=== PATIENT | female | born 1950 | race Caucasian/White ===

== ENCOUNTER → 2016-10-27 11:10 | Emergency (ER) | payer MEDICARE, BC ==
[2016-10-27 11:22] VITALS: BP 149/98
--- NOTE | 2016-10-27 12:40 | RAD ---
HISTORY: Back pain, fall, subacute trauma COMPARISONS: None VIEWS: 5 , Frontal, lateral, coned-down lateral sacral, and bilateral oblique views of the lumbar spine. FINDINGS: ALIGNMENT: There is a levoscoliotic curvature of the spine VERTEBRAL BODIES: There is mild depression of the superior endplate of L1. There is no osseous retropulsion JOINTS: There is diffuse facet hypertrophic change INTERVERTEBRAL DISCS: There is diffuse loss of intervertebral disc height. SOFT TISSUE: Unremarkable. OTHER: The pelvis is unremarkable. The lung bases are clear. IMPRESSION: 1. 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 NO OSSEOUS RETROPULSION. 2. DEGENERATIVE DISC DISEASE AND OSTEOARTHRITIS. 3. SCOLIOSIS
--- NOTE | 2016-10-27 12:40 | RAD ---
Indication: Right hip pain after fall. 2 views of the right hip and an AP view of the pelvis demonstrates no fracture. Pelvic ring is intact. IMPRESSION: No fracture of the right hip is noted.
--- NOTE | 2016-10-27 12:43 | ED ---
Back Pain - HPI Summary HPI Summary: 66F presents with right hip pain and back pain s/p fall four days ago. She states she was reaching for something a shelf and landed on his tailbone. She needed assistance getting up but has been walking since. She took some ibuprofen and it helped with the pain but made her constipated. She states that her pain is greatest when she starts moving but as she moves her pain decreases. she denies any numbness or tingling. She denies any loss of bowel or bladder. She denies any saddle anaesthesia. She denies any pain down her legs. She denies any history of back pain. - History of Current Complaint Chief Complaint: EDExtremityLower Stated Complaint: FALL/4DAYS AGO Time Seen by Provider: 10/27/16 11:23 Pain Intensity: 5 PMH/Surg Hx/FS Hx/Imm Hx Endocrine/Hematology History: Denies: Hx Anticoagulant Therapy Respiratory History: Denies: Hx Asthma Musculoskeletal History: Reports: Hx Scoliosis Infectious Disease History: Denies: Traveled Outside the [place] in Last 30 Days - Family History Known Family History: Positive: Cardiac Disease - Social History Alcohol Use: None Substance Use Type: Reports: None Smoking Status (MU): Light Every Day Tobacco Smoker Review of Systems Negative: Fever Negative: Chest Pain Negative: Shortness Of Breath Positive: Myalgia - back and right hip pain All Other Systems Reviewed And Are Negative: Yes Physical Exam Triage Information Reviewed: Yes Vital Signs On Initial Exam: Initial Vitals Temp Pulse Resp BP Pulse Ox 97.4 F 100 18 149/98 100 10/27/16 11:19 10/27/16 11:19 10/27/16 11:19 10/27/16 11:19 10/27/16 11:19 Vital Signs Reviewed: Yes Appearance: Positive: Well-Appearing Skin: Positive: Warm, Dry Head/Face: Positive: Normal Head/Face Inspection Eyes: Positive: Normal, Conjunctiva Clear Respiratory/Lung Sounds: Positive: Clear to Auscultation, Breath Sounds Present Cardiovascular: Positive: Normal, RRR Musculoskeletal: Positive: Strength/ROM Intact - back, hip, Other - no tender, neg SLR, good pulses - [place] Coma Scale Coma Scale Total: 15 Diagnostics - Vital Signs Vital Signs Temp Pulse Resp BP Pulse Ox 10/27/16 11:41 97.4 F 100 20 149/98 100 10/27/16 11:19 97.4 F 100 18 149/98 100 - Laboratory Lab Statement: Any lab studies that have been ordered have been reviewed, and results considered in the medical decision making process. - Radiology hip Xray Interpretation: No Acute Changes Radiology Interpretation Completed By: Radiologist back Xray Interpretation: Positive (See Comments) - MPRESSION: 1. 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 NO OSSEOUS RETROPULSION. 2. DEGENERATIVE DISC DISEASE AND OSTEOARTHRITIS. 3. SCOLIOSIS Radiology Interpretation Completed By: Radiologist Back Pain Course/Dx - Course Course Of Treatment: 66F presents with right hip pain and back pain s/p fall four days ago. She states she was reaching for something a shelf and landed on his tailbone. She needed assistance getting up but has been walking since. She took some ibuprofen and it helped with the pain but made her constipated. She states that her pain is greatest when she starts moving but as she moves her pain decreases. she denies any numbness or tingling. She denies any loss of bowel or bladder. She denies any saddle anaesthesia. She denies any pain down her legs. She denies any history of back pain. on exam nontender. xray hip normal. back L1 reduction height. no pain in the area. told to continue tyenlol and follow up with primary. patient understands and agrees with plan. - Diagnoses Differential Diagnosis/HQI/PQRI: Positive: Fracture, Strain, Sprain Provider Diagnoses: Hip pain, Back pain Discharge - Discharge Plan Condition: Good Disposition: HOME Patient Education Materials: Back Pain (ED) Referrals: Non Staff,Doctor [Primary Care Provider] - Additional Instructions: Use ibuprofen or Tylenol for pain every 6 hours heat area, move as much as possible Follow up with primary within 5 days Return to ED if unable to ambulate or develop any new or worsening symptoms
== END | disposition home or self-care (01) ==
LOC: ED 11:10
DX: M25.551 Pain in right hip (principal); M54.9 Dorsalgia, unspecified; F17.210 Nicotine dependence, cigarettes, uncomplicated; M51.37 Other intervertebral disc degeneration, lumbosacral region; M41.9 Scoliosis, unspecified
CPT/HCPCS: 72110; 99282

== ENCOUNTER 2016-11-02 00:18 | Inpatient (IN) | payer MEDICARE, BC ==
[2016-11-02] MEDS ORDERED: Nitroglycerin TAB 0.4 MG* 0.4 MG TAB SL ONE (00:26)
[2016-11-02] MEDS ORDERED: NS 0.9% 1000 ML* 1,000 ML IV ONE ×2 (00:26→02:00)
[2016-11-02] MEDS ORDERED: Heparin for STEMI(*) 5,000 UNITS/ML 1 ML VIAL IV ONE (00:26)
[2016-11-02] MEDS ORDERED: Ticagrelor* 90 MG TAB PO ONE (00:37)
[2016-11-02] MEDS ORDERED: fentaNYL* 50 MCG/ML 2 ML VIAL (100 MCG VIAL) ONE (00:38)
[2016-11-02] MEDS ORDERED: nitroGLYCERIN DRIP* 250 ML ONE ×2 (00:38→07:18)
[2016-11-02] MEDS ORDERED: Heparin 2 UNITS/ML IVPREMIX* 3,000 ML IV ONE (00:38)
[2016-11-02] MEDS ORDERED: Lidocaine 1% INJ* 10 MG/ML 30 ML SDV ONE (00:38)
[2016-11-02] MEDS ORDERED: Midazolam* 1 MG/ML 5 ML VIAL (5 MG) ONE (00:38)
[2016-11-02] MEDS ORDERED: Iohexol 350 (CONTRAST) 200 ML MDV IV ONE ×2 (00:39→01:30)
[2016-11-02 00:42] LABS: Hematocrit 43 % (35-47); Hemoglobin 15.1 g/dl (12.0-16.0); Mean Corpuscular HGB Conc 35 g/dl (31-36); Mean Corpuscular Hemoglobin 31 pg (27-31); Mean Corpuscular Volume 88 fL (80-97); Mean Platelet Volume 8 um3 (7.4-10.4); Red Blood Count 4.92 10^6/ul (4.0-5.4); Red Cell Distribution Width 14 % (10.5-15); White Blood Count 10.9 10^3/ul (3.5-10.8)
[2016-11-02 00:54] LABS: Albumin 4.4 g/dL (3.2-5.2); BUN/Creatinine Ratio 18.2 (8-20); Calcium 9.8 mg/dL (8.6-10.3); EGFR African American 82.9 (>60); EGFR Non-African American 64.5 (>60); Globulin 3.7 g/dL (2-4); Potassium 3.2 mmol/L (3.5-5.0); Total Bilirubin 0.3 mg/dL (0.2-1.0); Total Protein 8.1 g/dL (6.4-8.9)
[2016-11-02] MEDS ORDERED: Heparin(*) 1000 UNIT/ML 10 ML VIAL CATH LAB IV ONE (01:10)
[2016-11-02 01:14] LABS: Troponin I 0.1 ng/mL (<0.04)
[2016-11-02] MEDS ORDERED: Atropine SYRINGE* 0.1 MG/ML 10 ML SYRINGE (1 MG) ONE (01:54)
[2016-11-02] MEDS ORDERED: Atorvastatin* 80 MG TAB ONE (02:34)
[2016-11-02] MEDS ORDERED: Atorvastatin* 80 MG TAB PO ONE (02:35)
[2016-11-02] MEDS ORDERED: Metoprolol Succinate XL TAB* 25 MG PO ONE ×2 (02:55→05:00)
[2016-11-02] MEDS ORDERED: Ondansetron INJ* 2 MG/ML VIAL IV PRN (04:13)
[2016-11-02] MEDS ORDERED: Zolpidem TAB* 5 MG PO PRN (04:13)
[2016-11-02] MEDS ORDERED: oxyCODONE/Acetamin 5/325 MG* TAB PO PRN (04:14)
[2016-11-02] MEDS ORDERED: fentaNYL* 50 MCG/ML 2 ML VIAL (100 MCG VIAL) IV PRN (04:14)
--- NOTE | 2016-11-02 04:30 | ED ---
Roderick Galicia Alfonso, scribed for Dago Craven MD on 11/02/16 at 0033 . HPI Chest Pain - HPI Summary HPI Summary: STEMI Alert over headed at 0011. This patient is a 66 year old F BIBA to [facility] with a chief complaint of CP since 2200 tonight. The patient rated the pain 7/10 in severity, but now states the pain is not bad. Symptoms aggravated by nothing and alleviated by ASA 324 mg and NTG x1 RN CHARGE. Patient reports SOB. FHx of CAD. - History of Current Complaint Chief Complaint: EDChestPainROMI Time Seen by Provider: 11/02/16 00:25 Hx Obtained From: Patient Onset/Duration: Started Minutes Ago - 0 tonight, Still Present Timing: Constant Initial Severity: Severe Current Severity: Moderate Pain Intensity: 7 - was. Now the pain is not bad. Pain Scale Used: 0-10 Numeric Aggravating Factor(s): Nothing Alleviating Factor(s): Medication - ASA, NTG 123 - x1 Associated Signs and Symptoms: Positive: Chest Pain, Shortness of Breath PMH/Surg Hx/FS Hx/Imm Hx Endocrine/Hematology History: Denies: Hx Anticoagulant Therapy Respiratory History: Denies: Hx Asthma Musculoskeletal History: Reports: Hx Scoliosis - Family History Known Family History: Positive: Cardiac Disease - Social History Alcohol Use: None Substance Use Type: Reports: None Smoking Status (MU): Light Every Day Tobacco Smoker Review of Systems Positive: Chest Pain Positive: Shortness Of Breath All Other Systems Reviewed And Are Negative: Yes Physical Exam Triage Information Reviewed: Yes Vital Signs On Initial Exam: Initial Vitals Temp Pulse Resp BP Pulse Ox 97.8 F 84 16 170/95 100 11/02/16 00:36 11/02/16 00:36 11/02/16 00:36 11/02/16 00:36 11/02/16 00:36 Vital Signs Reviewed: Yes Appearance: Positive: Well-Appearing, Pain Distress - Moderate Skin: Positive: Warm, Skin Color Reflects Adequate Perfusion, Dry Head/Face: Positive: Normal Head/Face Inspection Eyes: Positive: EOMI, CL ENT: Positive: Normal ENT inspection Neck: Positive: Supple, Nontender Respiratory/Lung Sounds: Positive: Clear to Auscultation, Breath Sounds Present Cardiovascular: Positive: RRR Abdomen Description: Positive: Nontender, Soft Bowel Sounds: Positive: Present Musculoskeletal: Positive: Normal, Strength/ROM Intact Neurological: Positive: Normal, Sensory/Motor Intact, Alert, Oriented to Person Place, Time Psychiatric: Positive: Affect/Mood Appropriate Diagnostics - Vital Signs Vital Signs Temp Pulse Resp BP Pulse Ox 11/02/16 00:45 84 18 150/96 100 11/02/16 00:36 97.8 F 84 20 170/95 100 - Laboratory Lab Results: Lab Results 11/02/16 11/02/16 11/02/16 Range/Units 00:25 00:25 00:25 WBC 10.9 H (3.5-10.8) 10^3/ul RBC 4.92 (4.0-5.4) 10^6/ul Hgb 15.1 (12.0-16.0) g/dl Hct 43 (35-47) % MCV 88 (80-97) fL MCH 31 (27-31) pg MCHC 35 (31-36) g/dl RDW 14 (10.5-15) % Plt Count 444 (150-450) 10^3/ul MPV 8 (7.4-10.4) um3 Neut % (Auto) 66.1 (38-83) % Lymph % (Auto) 26.8 (25-47) % Bledsoe % (Auto) 5.0 (1-9) % Eos % (Auto) 1.4 (0-6) % Baso % (Auto) 0.7 (0-2) % Absolute Neuts (auto) 7.2 (1.5-7.7) 10^3/ul Absolute Lymphs (auto) 2.9 (1.0-4.8) 10^3/ul Absolute Monos (auto) 0.5 (0-0.8) 10^3/ul Absolute Eos (auto) 0.2 (0-0.6) 10^3/ul Absolute Basos (auto) 0.1 (0-0.2) 10^3/ul Absolute Nucleated RBC 0.04 10^3/ul Nucleated RBC % 0.4 INR (Anticoag Therapy) 0.87 L (0.89-1.11) APTT 31.4 (26.0-36.3) seconds Sodium 138 (133-145) mmol/L Potassium 3.2 L (3.5-5.0) mmol/L Chloride 102 (101-111) mmol/L Carbon Dioxide 26 (22-32) mmol/L Anion Gap 10 (2-11) mmol/L BUN 16 (6-24) mg/dL Creatinine 0.88 (0.51-0.95) mg/dL Est GFR ( Amer) 82.9 (>60) Est GFR (Non-Af Amer) 64.5 (>60) BUN/Creatinine Ratio 18.2 (8-20) Glucose 148 H (70-100) mg/dL Lactic Acid (0.5-2.0) mmol/L Calcium 9.8 (8.6-10.3) mg/dL Total Bilirubin 0.30 (0.2-1.0) mg/dL AST 18 (13-39) U/L ALT 16 (7-52) U/L Alkaline Phosphatase 89 (34-104) U/L Total Creatine Kinase 105 (10-223) U/L CK-MB (CK-2) 9.0 H (0.6-6.3) ng/mL Troponin I 0.10 H* (<0.04) ng/mL B-Natriuretic Peptide ( - 100) pg/mL Total Protein 8.1 (6.4-8.9) g/dL Albumin 4.4 (3.2-5.2) g/dL Globulin 3.7 (2-4) g/dL Albumin/Globulin Ratio 1.2 (1-3) LDL Cholesterol Direct 181 mg/dL Blood Type Antibody Screen 11/02/16 11/02/16 11/02/16 Range/Units 00:25 00:25 00:25 WBC (3.5-10.8) 10^3/ul RBC (4.0-5.4) 10^6/ul Hgb (12.0-16.0) g/dl Hct (35-47) % MCV (80-97) fL MCH (27-31) pg MCHC (31-36) g/dl RDW (10.5-15) % Plt Count (150-450) 10^3/ul MPV (7.4-10.4) um3 Neut % (Auto) (38-83) % Lymph % (Auto) (25-47) % Bledsoe % (Auto) (1-9) % Eos % (Auto) (0-6) % Baso % (Auto) (0-2) % Absolute Neuts (auto) (1.5-7.7) 10^3/ul Absolute Lymphs (auto) (1.0-4.8) 10^3/ul Absolute Monos (auto) (0-0.8) 10^3/ul Absolute Eos (auto) (0-0.6) 10^3/ul Absolute Basos (auto) (0-0.2) 10^3/ul Absolute Nucleated RBC 10^3/ul Nucleated RBC % INR (Anticoag Therapy) (0.89-1.11) APTT (26.0-36.3) seconds Sodium (133-145) mmol/L Potassium (3.5-5.0) mmol/L Chloride (101-111) mmol/L Carbon Dioxide (22-32) mmol/L Anion Gap (2-11) mmol/L BUN (6-24) mg/dL Creatinine (0.51-0.95) mg/dL Est GFR ( Amer) (>60) Est GFR (Non-Af Amer) (>60) BUN/Creatinine Ratio (8-20) Glucose (70-100) mg/dL Lactic Acid 1.8 (0.5-2.0) mmol/L Calcium (8.6-10.3) mg/dL Total Bilirubin (0.2-1.0) mg/dL AST (13-39) U/L ALT (7-52) U/L Alkaline Phosphatase (34-104) U/L Total Creatine Kinase (10-223) U/L CK-MB (CK-2) (0.6-6.3) ng/mL Troponin I (<0.04) ng/mL B-Natriuretic Peptide 38 ( - 100) pg/mL Total Protein (6.4-8.9) g/dL Albumin (3.2-5.2) g/dL Globulin (2-4) g/dL Albumin/Globulin Ratio (1-3) LDL Cholesterol Direct mg/dL Blood Type O Positive Antibody Screen Negative Result Diagrams: 11/02/16 00:25 11/02/16 00:25 Lab Statement: Any lab studies that have been ordered have been reviewed, and results considered in the medical decision making process. - EKG 0019 Cardiac Rate: NL - BPM 79 EKG Rhythm: Sinus Rhythm Ectopy: None EKG Interpretation: ST elevation in inferior and lateral leads. ST depression in anterior leads Chest Pain Course/Dx - Course Course Of Treatment: CRITICAL CARE TIME LESS THAN [address] BARRY SAW PATIENT IN ED AND TOOK PATIENT TO AUTO DAMAGE ADJUSTER. - Diagnoses Provider Diagnoses: STEMI (ST elevation myocardial infarction) During the Visit The Following Alert/Code Occurred: STEMI - STEMI Alert over headed at 0011 - Provider Notifications Discussed Care Of Patient With: Derek Barry Time Discussed With Above Provider: 00:36 Instructed by Provider To: Other - Consulted Dr. Barry (asphalt screed operator) who is currently seeing the patient in the ED and is bringing the patient to the lift slab operator. Discharge - Discharge Plan Condition: Guarded Disposition: ADMITTED TO [facility] Discharge Disposition Comment: manager laboratory with Dr. Barry. The documentation as recorded by the Roderick morales Alfonso accurately reflects the service I personally performed and the decisions made by me, Dago Craven MD.
[2016-11-02] MEDS ORDERED: Lisinopril TAB* 5 MG PO PRN (04:36)
[2016-11-02] MEDS ORDERED: Isosorbide Mononitrate ER TAB* 30 MG PO ONE (05:00)
[2016-11-02] MEDS ORDERED: nitroGLYCERIN DRIP* 25,000 MCG in PREMIX* 0 ML IV SCH (05:00)
--- NOTE | 2016-11-02 05:42 | HP ---
CC: Keturah Tyler NP, [place] * HISTORY AND PHYSICAL: DATE OF ADMISSION: 11/02/16 CHIEF COMPLAINT: The patient presents with ST-segment elevation inferoposterior wall myocardial infarction. HISTORY OF PRESENT ILLNESS: The patient is a 66-year-old female with no prior known cardiac history. Specifically, she denies any history of myocardial infarction, congestive heart failure, or significant heart rhythm disturbance. The patient was in her usual state of health and today, this evening, carried a load of laundry up the stairs and came back down. While sitting, she started developing back discomfort. She has had this in the past, but this was different according to her in that it radiated around to the chest and into the throat and jaw. She had some sweating with it but no definitive shortness of breath or nausea according to the patient. It continued and at first, she tried to just rest and see if it would go away. Eventually, it did not go away and as such, the ambulance was called an hour and a half later. On arrival, EKG was performed and called to [facility] as a ST-elevation myocardial infarction. She arrived at the hospital and repeat EKG documented ST -segment elevation myocardial infarction. She was given aspirin, heparin, and Brilinta after being intervened and examined. The risks and benefits of cardiac catheterization were explained to her and she understood them and wished to proceed. CARDIAC RISK FACTORS: According to the patient, she has no history of hypertension, diabetes, or hyperlipidemia. She does smoke and has family history of coronary artery disease. The patient states that she has had chronic back discomfort and interestingly, does mention that for the past at least 2 years there would be times when she would mow the lawn and if she did it aggressively with a push mower, she would develop back discomfort. She did not predictably have these symptoms going up or downstairs and carrying things, as she carried things just last week without provoking it. PAST MEDICAL HISTORY: Only allergies for which she takes medications. She recently, couple of days ago, had a fall where she hurt her tail bone, but no fracture was noted. REVIEW OF SYSTEMS: Pertinent to proceeding directly to the cardiovascular laboratory for possible PCI. The patient has no history of TIA or any history of stroke. She has no history of renal disease. She denies any contrast allergy. She denies any hematuria, hematochezia, or hematemesis. PHYSICAL EXAMINATION VITAL SIGNS: When I saw her in the emergency room, blood pressure approximately 170/90, pulse was in the 80s, respirations 16 and regular, afebrile. HEENT: Conjunctivae were pink. Sclerae clear. NECK: Supple. No increased JVP. Carotid had fair upstroke and volume. There were no definitive bruits or transmitted murmur. LUNGS: Revealed no accessory muscle usage. Shows good excursion. Lungs were clear to A and P with no active rales, rhonchi, or wheezes. HEART: Revealed no visible heaves. No palpable heaves or thrills. Normal S1 and S2. There is no significant systolic or diastolic murmur. ABDOMEN: Soft, nontender without organomegaly. EXTREMITIES: Without clubbing, cyanosis, or marlene pitting edema. Peripheral pulses intact. Femoral pulse present without bruits. NEURO: The patient alert and oriented with normal mentation. MUSCULOSKELETAL: The patient moves all extremities appropriately. PSYCHOLOGICAL: The patient is appropriately anxious with continued chest discomfort. LABORATORY DATA: Laboratory results were pending. OVERALL ASSESSMENT: Silvia now presents in the throes of an acute ST-segment elevation myocardial infarction. The risks and benefits were explained to her. She received aspirin, heparin, and Brilinta therapy. We will proceed to the cardiovascular laboratory and hopefully, be able to perform PCI to interrupt the acute myocardial infarction. Further management will be made pending the results of the findings in the cardiovascular laboratory. [id number]/CPS #: [id number] MTDD
[2016-11-02 06:53] LABS: Hematocrit 37 % (35-47); Hemoglobin 12.4 g/dl (12.0-16.0); Mean Corpuscular HGB Conc 34 g/dl (31-36); Mean Corpuscular Hemoglobin 30 pg (27-31); Mean Corpuscular Volume 89 fL (80-97); Mean Platelet Volume 8 um3 (7.4-10.4); Red Blood Count 4.18 10^6/ul (4.0-5.4); Red Cell Distribution Width 13 % (10.5-15); White Blood Count 12.7 10^3/ul (3.5-10.8)
[2016-11-02 07:08] LABS: ALT 73 U/L (7-52); AST 414 U/L (13-39); Albumin 3.8 g/dL (3.2-5.2); Alkaline Phosphatase 74 U/L (34-104); Anion Gap 8 mmol/L (2-11); BUN/Creatinine Ratio 21.1 (8-20); Blood Urea Nitrogen 15 mg/dL (6-24); CO2 Carbon Dioxide 25 mmol/L (22-32); Calcium 9.4 mg/dL (8.6-10.3); Chloride 104 mmol/L (101-111); Cholesterol 223 mg/dL; EGFR African American 106.3 (>60); EGFR Non-African American 82.6 (>60); Globulin 2.8 g/dL (2-4); Glucose 137 mg/dL (70-100); HDL Cholesterol 44.7 mg/dL; LDL Cholesterol 141 mg/dL; Potassium 3.4 mmol/L (3.5-5.0); Sodium 137 mmol/L (133-145); Total Protein 6.6 g/dL (6.4-8.9); Triglycerides 185 mg/dL
[2016-11-02 07:24] LABS: Creatine Kinase 5029 U/L (10-223)
[2016-11-02] MEDS: Metoprolol Succinate XL TAB* 25 MG PO SCH ×2 (08:14→20:17)
[2016-11-02] MEDS: Docusate CAP* 100 MG PO SCH (08:14)
[2016-11-02] MEDS: Aspirin Low Dose CHEW TAB* 81 MG PO SCH (08:14)
[2016-11-02] MEDS: Ticagrelor* 90 MG TAB PO SCH ×2 (08:15→22:11)
[2016-11-02 08:42] LABS: Troponin I > 82.00 ng/mL (<0.04)
--- NOTE | 2016-11-02 09:14 | ECHO ---
Patient: JONAH CARVALHO [facility] Rec#: [id number] : 1950 Date: 11/02/2016 Age: 66y Height: 149.86 cm / 59.0 in Weight: 45.36 kg / 100.0 lbs Sex: F BSA: 1.37 Room#: [facility] Admit Date#: 11/02/2016 Type: Inpatient Referring: Derek Zamorano MD Reading: Gini Sharma MD Belt Splicer: [facility] Tran[facility]ch[facility] Indication: STEMI, s/p PCI BP: 115/64 HR: 62 Rhythm: NSR with PVCs Findings History: STEMI 11/02/16, s/p PCI, smoker. Technical Comments: The study quality is good. The study was technically limited due to the patient's inability to lay in the left lateral decubitus position. Left Ventricle: The left ventricular chamber size is normal. Mild to moderate concentric left ventricular hypertrophy is observed. There are multiple regional wall motion abnormalities. There is mildly decreased left ventricular systolic function. The estimated ejection fraction is 40-45%. with anterior, inferior posterior and mid-distal septal ho hypokinesis. Abnormal left ventricular diastolic function is observed. Abnormal left ventricular diastolic filling is observed, consistent with impaired relaxation. Left Atrium: The left atrium is mildly dilated. Right Ventricle: Moderator Band present. The right ventricular cavity size is normal. The right ventricular global systolic function is low normal. Right Atrium: The right atrial cavity size is normal. Aortic Valve: The aortic valve is trileaflet. There is a trace of aortic regurgitation. There is no evidence of aortic stenosis. Mitral Valve: The mitral valve leaflets are mildly thickened. There is mild mitral regurgitation. There is no evidence of mitral stenosis. Tricuspid Valve: The tricuspid valve leaflets are normal. There is a physiologic tricuspid regurgitation. No pulmonary hypertension is noted. There is no tricuspid stenosis. Pulmonic Valve: The pulmonic valve appears normal. There is a trace pulmonic regurgitation. There is no pulmonic stenosis. Pericardium: A trivial pericardial effusion is visualized.vs fat pad. There are no signs of significant hemodynamic compromise. The pericardial effusion is seen adjacent to the right ventricle. Aorta: There is no dilatation of the ascending aorta. There is no dilatation of the aortic arch. There is no dilation of the aortic root. Pulmonary Artery: The main pulmonary artery appears normal. Venous: The inferior vena cava appears normal in size. There is a greater than 50% respiratory change in the inferior vena cava dimension. Summary: There was not any prior study for comparison. Conclusions The left ventricular chamber size is normal. Mild to moderate concentric left ventricular hypertrophy is observed. The estimated ejection fraction is 40-45%. with anterior, inferior posterior and mid-distal septal ho hypokinesis. Abnormal left ventricular diastolic function is observed. Abnormal left ventricular diastolic filling is observed, consistent with impaired relaxation. The left atrium is mildly dilated. There is a trace of aortic regurgitation. There is mild mitral regurgitation. A trivial pericardial effusion is visualized.vs fat pad. There are no signs of significant hemodynamic compromise. Measurements Name Value Normal Range RVIDd (AP) 2D 1.8 cm (0.9 - 2.6) RVDdMajor (2D) 3.6 cm (2.2 - 4.4) RAd ISD 4CH 3.7 cm (3.4 - 4.9) RA (A4C)W 3.6 cm (2.9 - 4.6) IVSd (2D) 1.3 cm (0.6 - 1) LVPWd (2D) 1.2 cm (0.6 - 1) LVIDd (2D) 4.1 cm (3.6 - 5.4) LVIDs (2D) 2.9 cm - LV FS (2D) 28 % (25 - 45) Aortic Annulus 1.7 cm (1.4 - 2.6) Ao root diameter (2D) 2.6 cm (2.1 - 3.5) Ascending Ao 2.5 cm (2.1 - 3.4) Aortic arch 2.5 cm (1.8 - 3.4) LA dimension (AP) 2D 2.5 cm (2.3 - 3.8) LAd ISD 4CH 4.8 cm (2.9 - 5.3) LA ISD 4CH W 3.5 cm (2.5 - 4.5) Name Value Normal Range LA ESV SP 4CH (A/L) 40 ml - LA ESV SP 2CH (A/L) 54 ml - LA ESV BP (A/L) 47 ml - LA ESV BP (A/L) index 34.15 ml/m2 - LA ESV SP 4CH (MOD) 36 ml - LA ESV SP 2CH (MOD) 51 ml - Name Value Normal Range MV E-wave Vmax 0.44 m/sec - MV deceleration time 242.4 msec - MV A-wave Vmax 0.92 m/sec - MV E:A ratio 0.47 ratio - LV septal e' Vmax 0.04 m/sec - LV lateral e' Vmax 0.04 m/sec - LV E:e' septal ratio 11 ratio - LV E:e' lateral ratio 11 ratio - Name Value Normal Range AV Vmax 1.3 m/sec - AV VTI 21.5 cm - AV peak gradient 6.21 mmHg - AV mean gradient 2.84 mmHg - LVOT Vmax 0.66 m/sec - LVOT VTI 14.2 cm - LVOT peak gradient 1.76 mmHg - LVOT mean gradient 0.87 mmHg - KAREN Vmax 0.44 m/sec - Name Value Normal Range MR flow (PISA) 114.6 ml/sec - MR PISA radius 0.5 cm - Name Value Normal Range TR Vmax 1.1 m/sec - TR peak gradient 5 mmHg - RAP 3 mmHg - RVSP 8 mmHg - IVC diameter 1.04 cm - Name Value Normal Range PV Vmax 0.6 m/sec - PV peak gradient 1.46 mmHg - TX end-diastolic Vmax 0.79 m/sec -
[2016-11-02] MEDS: Nicotine Inhaler* 10 MG AMP INH PRN ×2 (09:34→19:05)
[2016-11-02] MEDS ORDERED: Mouth Piece, Nicotine* 1 EACH CARTRIDGE INH ONE (10:00)
[2016-11-02 13:22] LABS: Troponin I > 82.00 ng/mL (<0.04)
[2016-11-02 13:59] LABS: Creatine Kinase 3640 U/L (10-223)
[2016-11-02 19:08] LABS: Troponin I > 82.00 ng/mL (<0.04)
[2016-11-02 19:23] LABS: Creatine Kinase 2463 U/L (10-223)
[2016-11-02] MEDS: Acetaminophen TAB* 325 MG PO PRN (20:17)
[2016-11-02] MEDS ORDERED: Atorvastatin* 80 MG TAB PO SCH (21:00)
[2016-11-02] MEDS ORDERED: Potassium Chlor TAB* 20 MEQ TAB.ER PO ONE (23:00)
[2016-11-02] MEDS ORDERED: Potassium Chloride LIQUID* 20 MEQ PACKET PO ONE (23:45)
[2016-11-03] MEDS: Acetaminophen TAB* 325 MG PO PRN (06:13)
[2016-11-03 06:51] LABS: BUN/Creatinine Ratio 16.2 (8-20); Calcium 9.3 mg/dL (8.6-10.3); EGFR African American 101.3 (>60); EGFR Non-African American 78.8 (>60); Potassium 3.6 mmol/L (3.5-5.0)
[2016-11-03] MEDS ORDERED: Metoprolol Succinate XL TAB* 25 MG PO SCH (09:00)
[2016-11-03] MEDS: Aspirin Low Dose CHEW TAB* 81 MG PO SCH (09:11)
[2016-11-03] MEDS: Docusate CAP* 100 MG PO SCH (09:11)
[2016-11-03] MEDS: Metoprolol Succinate XL TAB* 25 MG PO SCH (09:11)
[2016-11-03] MEDS: Ticagrelor* 90 MG TAB PO SCH (09:12)
[2016-11-03 16:59] VITALS: BP 133/73
--- NOTE | 2016-11-04 04:45 | DS ---
CC: Dr. Zamorano; Keturah Tyler NP, Dai; Dr. Sharma * DISCHARGE SUMMARY: DATE OF ADMISSION: 11/02/16 DATE OF DISCHARGE: 11/03/16 DISCHARGE DIAGNOSES: 1. Status post ST-elevation inferoposterior wall myocardial infarction. 2. History of tobacco consumption and she quit after this hospitalization. 3. Mildly reduced left ventricular systolic pressure with ejection fraction of 40% to 45% and inferoposterior and wje-xr-brnnwf septal wall hypokinesis. 4. Trace aortic insufficiency. 5. Mild mitral insufficiency. Please refer to full separate notes of history and physical by Dr. Zamorano on . Please refer to full cardiac catheterization note and intervention by Dr. Zamorano on 11/02/16. DISCHARGE MEDICATIONS: 1. Sublingual nitroglycerin 0.4 mg p.r.n. for chest pain. 2. Toprol-XL 25 mg twice a day. 3. Lipitor 80 mg q.h.s. 4. Brilinta 90 mg p.o. b.i.d. LABORATORY DATA: Most recent labs, 11/02/16, white blood cells 12.7, hemoglobin 12.4, hematocrit 37, platelets 383. Chemistry from 11/03/16: Sodium 136, potassium 3.6 which is replenished, chloride 107, carbon dioxide 23 , BUN 12, creatinine 0.74. Peak troponin is more than 82. Peak total CK is 5029 with a peak MB 1315. Total cholesterol 223, triglycerides 185, LDL 141, and HDL 44.7. EKG on today's discharge, 11/03/16, normal sinus rhythm, heart rate 68 beats per minute, borderline ST elevation in lead III and aVF, deep T-wave inversion V4, V5, and V6, and flattened T wave in lead 1 and aVL. In summary, the patient is a 66-year-old female patient, who presented and ruled in for inferoposterior wall ST-elevation myocardial infarction. She was taken urgently to the cardiac section laborer by Dr. Zamorano on 11/02/16. Please refer to our full separate history and physical and cath note as per Dr. Zamorano. She was found to have an EF of 40% to 45% with infero-posterior wall hypokinesis and 45% to 50% disease in the proximal LAD. RCA had 35% to 40% proximal. The left main without any significant disease and she was found to have 100% disease of the circumflex coronary artery. She under-went a primary stenting to the mid circ, 3.0 x 24, Synergy drug-eluting stent. She has done well. She gives no symptoms of chest pain or orthopnea. No PND, no dizziness, no syncope , no fever, no chills, no skin rash, no tremors, no hematochezia is appreciated. PHYSICAL EXAMINATION: Today, she is alert, awake, and oriented. She is not in acute distress. Vitals: Blood pressure is 110/55, pulse 68, she is in sinus rhythm, she is afebrile. Head and Neck Exam: Normocephalic and atraumatic head. Ears, Nose, and Throat: Essentially benign. Neck: Supple. JVD is not elevated. No carotid bruits. No masses in the neck are appreciated. Chest: Clear to auscultation. No rales, no wheezes, no added sounds appreciated. Heart : Normal, regular S1 and S2. No added sounds, no gallops, no rubs. Abdomen: Benign, positive bowel sounds. Extremities: No edema, no cyanosis, and no clubbing. Skin exam is normal. Psych: Normal affect and mood. HYSTER MACHINE OPERATOR: No focal deficit is appreciated. Examination of the right groin area showed no evidence of bleeding. No hematoma. Normal bilateral femoral pulsations, distal pulsations. No bruits on auscultating the right femoral artery. PLAN: The patient is hemodynamically stable to be discharged home today as per the above all instructions. We discussed lifestyle modification. We made a great emphasis to continue to quit smoking and low-salt and low-fat diet. Avoid significant alcohol, caffeinated drinks, and stimulants, and follow the specific postangioplasty stenting instructions. She is to follow up with Dr. Zamorano next week accordingly. More than half of at least 35-plus minute was in the education and counseling mode, ocum-vp-nmfy explaining all of the above discharge instructions, understanding all their concerns, and questions up to their satisfaction. [id number]/[facility] #: [id number] PADMINI
--- NOTE | 2016-11-04 07:21 | CATH ---
CC: Keturah Tyler NP * CARDIAC CATHETERIZATION REPORT: DATE OF PROCEDURE: 11/02/16 - ROOM #ICU-09 INDICATIONS FOR PROCEDURE: The patient presents with acute ST-segment elevation posterior inferior myocardial infarction. PROCEDURE: Coronary arteriography, primary stenting of the proximal to mid circumflex with placement of a 3.5 x 24 mm long Synergy drug-eluting stent, post dilated to 3.7 mm, left heart catheterization, left ventriculography. DESCRIPTION OF PROCEDURE: The patient was interviewed and examined in the emergency room where the risks and benefits were explained. She understood them and wished to proceed. She was brought to the cardiovascular laboratory and prior to coming there, she had been given 4000 units of heparin intravenously in addition to aspirin prior to arrival in the emergency room, full dose 325, and also given Brilinta 180 mg in the emergency room. She was prepped and draped in sterile fashion. The right groin area was anesthetized with 1% lidocaine, right femoral artery was cannulated using an anterior wall only stick. A 6.5 Lao introducer was placed. Coronary arteriography was performed utilizing a 5-Lao 3.5 curve left coronary catheter and a 5-Lao 4 Kelsey right coronary catheter. Decision was then made to intervene into the subtotally occluded proximal to mid circumflex artery. ACT was checked and found to be just over 200, an additional 2000 units of heparin was given intravenously. Guiding views were obtained utilizing a CLS 3.0 curve 6-Lao left coronary artery guide catheter. A 0.014 BMW wire was advanced down the circumflex artery and primary stenting was performed utilizing a 3.5 x 24 mm long Synergy drug-eluting stent with post deployment balloon inflations made utilizing an NC Emerge balloon 3.5-mm diameter, 12 mm in length to high pressures to obtain 3.6 to 3.7 mm. Following this, the artery was assessed in multiple views. Left heart catheterization was then performed utilizing a 5- Lao pigtail catheter, advanced to the ascending aorta where central aortic pressure was recorded. The catheter was then passed across the aortic valve into the left ventricle, where left ventricular pressure was recorded. Left ventriculography was performed utilizing a total of 20 cc of Omnipaque dye at a rate of 10 cc per second. The catheter was pulled back across the aortic valve to recheck gradient. Following this, an injection was made into the right femoral sheath to assess eligibility to utilize closure device. It was found to be acceptable for this and as such, a 6/7 Lao Mynx closure device was deployed with good hemostasis. During the course of the procedure, the patient was also started on intravenous nitroglycerin increasing from 5 mcg up to 10 mcg for hypertension, the patient was sedated with Versed and fentanyl. The total contrast used was 165 cc of Omnipaque dye. The radiation exposure included 15.8 minutes of fluoro time. The air kerma was 183 milligray. The DAP radiation was 5270 microgray per sq. m. RESULTS: HEMODYNAMIC DATA: Left heart catheterization - revealed central aortic pressure to be recorded at 157/left ventricular end-diastolic pressure of 23 to 27. Central aortic pressure was recorded at 159/88 with mean of 19. LEFT VENTRICULOGRAPHY: Performed in the MARTE projection revealed moderate-to- significant hypokinesis of the mid to distal inferior wall and some of the apical region, there was preservation of the proximal wall and the proximal mid anterior wall had mild/kvdp-md-kohojwkd hypokinesis, overall ejection fraction noted to be approximately 40% to 45%. CORONARY ARTERIOGRAPHY: A. Left coronary artery: 1. Left main - left main was evaluated in multiple views. It was difficult to assess and in certain views, it almost appeared like there was a very proximal lesion seen. This may have been due to difficult seating of the catheter within the left main area. On final injections using different catheters, we tried to visualize it, the left main appeared to be without significant lesion. It was, however, still questionable on other views. 2. Left anterior descending artery - the left anterior descending artery revealed a mid area of narrowing, which appeared to be as much as 65% to 70% in it's worst view . This was an area noted just after the first septal retail reset merchandiser . The LAD supplied a mid diagonal branch and traversed to the apical region and on to the distal inferior wall. There was no other significant lesion seen within the left anterior descending artery. 3. Circumflex artery - a nondominant vessel supplying a large, obtuse marginal branch extending to the mid-to-low posterolateral apical region, this artery was found to be septally occluded in its proximal portion. B. Right coronary artery - the dominant vessel supplying the PDA and several thin short posterior left ventricular branches (the LAD seen to wrap around the apex did supply the distal inferior wall. There was some mild luminal irregularity noted in the proximal portion of the vessel of approximately 35%). INTERVENTION INTO PROXIMAL TO MID CIRCUMFLEX: Successful reconstitution of subtotally occluded proximal to mid circumflex with primary stenting utilizing a 3.5 x 24 mm long Synergy drug-eluting stent post dilated to 3.6 to 3.7 mm with a KOREY-3 flow, no dissection seen and 0% residual stenosis. Of note, post stent placement, there appeared to be mild-to- moderate narrowing in the proximal portion of the circumflex of approximately 35 %. Of note, this may just represents mild spasm to the area as the original images of this area prior to any stent placement did not show a lesion in that area. OVERALL ASSESSMENT: Moderate left ventricular systolic dysfunction primarily involving the mid to distal inferior posterolateral apical region with foph-hq-rcxjqowq hypokinesis of the mid anterior wall. Significant coronary artery disease involving the proximal to mid circumflex subtotally occluded reconstituted with primary stenting as described above. Moderate disease, borderline significant to proximal LAD will need further assessment at a later date. I will review the images regarding the left main with Dr. Mendiola, who will be covering 11/02-2016 as to the need for IVUS during this hospitalization. For now, dual- antiplatelet therapy, high-dose statin therapy, in addition to hypertension management and smoking cessation all paramount to overall care for her cardiac disease. Addendum: - discussed the case with Dr. Alexa Mendiola MD, covering interventionalist for next couple of days. He did not feel the left main was significant and did not think IVUS was needed during this hospitalization. I will consider the timing of the need to reassess LM and LAD. when I see her in follow up next week. [id number]/[facility] #: [id number] [facility] CENTERAshley
== END 2016-11-03 16:00 | disposition home or self-care (01) | DRG 247 ==
LOC: ED 00:18 → CHICATH 00:49 → ICU 02:30
PROVIDERS: ADMIT Internal Medicine Cardiovascular Disease; ATTEND Internal Medicine Cardiovascular Disease
PROC: 4A023N7 Measurement of Cardiac Sampling and Pressure, Left Heart, Percutaneous Approach (ICD-10-PCS; principal; 2016-11-02)
PROC: 027034Z Dilation of Coronary Artery, One Artery with Drug-eluting Intraluminal Device, Percutaneous Approach (ICD-10-PCS; 2016-11-02)
PROC: B2151ZZ Fluoroscopy of Left Heart using Low Osmolar Contrast (ICD-10-PCS; 2016-11-02)
PROC: B2111ZZ Fluoroscopy of Multiple Coronary Arteries using Low Osmolar Contrast (ICD-10-PCS; 2016-11-02)
DX: I21.11 ST elevation (STEMI) myocardial infarction involving right coronary artery (principal); M41.9 Scoliosis, unspecified; I08.0 Rheumatic disorders of both mitral and aortic valves; Z91.81 History of falling; Z82.49 Family history of ischemic heart disease and other diseases of the circulatory system; F17.200 Nicotine dependence, unspecified, uncomplicated; I25.10 Atherosclerotic heart disease of native coronary artery without angina pectoris
CPT/HCPCS: 36415; 80048; 80053; 80061; 82550; 82553; 83605; 83721; 83880; 84484; 85025; 85610; 85730; 86850; 86900; 86901; 87641; 93005; 93306; 99156; 99157; 99406; A9270-GY; C1725; C1760; C1769; C1876; C1887; C9606-LC; J0461; J1644; J2001; J2250; J3010

== ENCOUNTER 2016-11-16 10:08 | Observation (INO) | payer MEDICARE, BC ==
[2016-11-16] MEDS ORDERED: Diazepam TAB(*) 5 MG ONE (10:22)
[2016-11-16] MEDS ORDERED: diPHENhydraMINE PO* 25 MG ONE (10:22)
[2016-11-16] MEDS ORDERED: Midazolam* 1 MG/ML 5 ML VIAL (5 MG) ONE (11:03)
[2016-11-16] MEDS ORDERED: Iohexol 350 (CONTRAST) 200 ML MDV IV ONE (11:03)
[2016-11-16] MEDS ORDERED: fentaNYL* 50 MCG/ML 2 ML VIAL (100 MCG VIAL) ONE (11:03)
[2016-11-16] MEDS ORDERED: Heparin 2 UNITS/ML IVPREMIX* 3,000 ML IV ONE (11:03)
[2016-11-16] MEDS ORDERED: Lidocaine 1% INJ* 10 MG/ML 30 ML SDV ONE (11:03)
[2016-11-16] MEDS ORDERED: Heparin(*) 1000 UNIT/ML 10 ML VIAL CATH LAB IV ONE (11:35)
[2016-11-16] MEDS ORDERED: nitroGLYCERIN DRIP* 250 ML ONE (11:59)
[2016-11-16] MEDS ORDERED: NS 0.9% 1000 ML* 500 ML IV SCH (12:45)
[2016-11-16] MEDS ORDERED: Nitroglycerin TAB 0.4 MG* 0.4 MG TAB SL PRN (12:47)
[2016-11-16] MEDS ORDERED: Acetaminophen TAB* 325 MG ONE (14:41)
[2016-11-16] MEDS ORDERED: Atorvastatin* 80 MG TAB PO SCH (18:00)
[2016-11-16 18:31] VITALS: BP 132/70
[2016-11-16] MEDS ORDERED: Ticagrelor* 90 MG TAB PO SCH (21:00)
[2016-11-16] MEDS ORDERED: Metoprolol Succinate XL TAB* 25 MG PO SCH (21:00)
[2016-11-17] MEDS ORDERED: Aspirin EC Low Dose* 81 MG TAB.EC PO SCH (09:00)
--- NOTE | 2016-11-18 16:43 | CATH ---
CC: Keturah Tyler NP * INTRACORONARY ULTRASOUND REPORT: DATE OF PROCEDURE: 11/16/16 - ROOM #439 INDICATION FOR PROCEDURE: The patient with a left main eccentric lesion, now for intracoronary ultrasound for assessment of severity of lesion. PROCEDURE IN DETAIL: The patient was interviewed and examined in the office where the risks and benefits were explained of the procedure, she understood that and wished to proceed. She was brought to the cardiovascular laboratory where a formal time-out was performed. She was prepped and draped in sterile fashion. The left groin area was anesthetized with 1% lidocaine and the left femoral artery was cannulated and a 6.5-Gibraltarian Merit sheath was placed. Guiding views were obtained utilizing a 6-Gibraltarian XB 2.5 curve left coronary guide catheter. The patient received 3500 units of heparin with an additional 1000 units of heparin given to maintain an ACT in therapeutic range. A BMW guidewire was advanced down the left coronary artery and a 3-Gibraltarian OptiCross IVUS catheter was advanced in pull back technique, both automatic and manually performed to obtain left main minimal area dimensions. Following this, the catheter was removed and the guide catheter removed and injection was made into the left femoral sheath to assess eligibility to utilize a closure device. It was found to be acceptable for this and as such, a 6/7-Gibraltarian Mynx closure device was deployed. The total contrast used was 95 cc of Omnipaque dye. RESULTS: Left main minimal luminal area calculation revealed an area of 14.5 mm2 suggesting the presence of an eccentric non-hemodynamically significant left main lesion. The ultrasound appearance revealed an eccentric plaque. Continued aggressive medical management and risk factor reduction to be pursued. [id number]/[facility] #: [id number] [facility] NETWORKAshley
--- NOTE | 2016-11-25 04:32 | DS ---
DISCHARGE SUMMARY: DATE OF ADMISSION: DATE OF DISCHARGE: 11/16/16 FINAL DIAGNOSIS: Includes coronary artery disease. HOSPITAL COURSE: Ms. Gates underwent cardiac catheterization today specifically to have intracorona ry ultrasound of her left main. Because of the fact that she came out of the lab and required a grazyna lon period of time than a routine outpatient prior to going home and because the [facility] Staff could not stay for this, she was placed on one of the floors just to be observed until her bed rest was up. She did well, was up and about, and discharged home and will be followed up in my office. [id number]/[facility] #: [id number]
== END 2016-11-16 19:15 | disposition home or self-care (01) ==
LOC: CHICATH 10:08 → MEDTELE 16:29
PROVIDERS: ADMIT Internal Medicine Cardiovascular Disease; ATTEND Internal Medicine Cardiovascular Disease
DX: I25.10 Atherosclerotic heart disease of native coronary artery without angina pectoris (principal); I25.2 Old myocardial infarction; Z87.891 Personal history of nicotine dependence; E78.5 Hyperlipidemia, unspecified
CPT/HCPCS: 93454; 99156; 99157; A9270-GY; C1753; C1760; C1769; G0378; J1644; J2001; J2250; J3010

== ENCOUNTER 2023-11-05 14:53 | Observation (INO) ==
[2023-11-05 16:06] LABS: Urine Appearance Extra Turbid; Urine Bilirubin Negative (Negative); Urine Blood 2+ (Negative); Urine Color Yellow; Urine Glucose Trace (Negative); Urine Ketones 1+ (Negative); Urine Nitrite Negative (Negative); Urine Protein 1+ (>=30 mg/dL) (Negative); Urine Specific Gravity 1.033 (1.002-1.030); Urine Urobilinogen 1+ (Negative); Urine pH 5.5 (5.0-8.0)
[2023-11-05 16:26] LABS: Urine Bacteria Absent /HPF (Absent); Urine Red Blood Cell 3+(>10/hpf) /HPF (0-Trace); Urine Squamous Epithelial Cell Present /HPF (Absent); Urine White Blood Cell Trace(0-5/hpf) /HPF (0-Trace)
[2023-11-05] MEDS: Ondansetron 4 mg VIAL 2 MG/ML 2 ml VIAL IV ONE ×2 (17:49→19:17)
[2023-11-05] MEDS: Lactated Ringers 1000 ml BAG 1,000 ML IV ONE ×2 (17:49→19:22)
[2023-11-05 17:50] LABS: ABS Basophils 0.1 10^3/uL (0.0-0.1); ABS Lymphocytes 2.2 10^3/uL (1.0-4.8); ABS Monocytes 0.8 10^3/uL (0.0-0.9); ABS Neutrophils 10.2 10^3/uL (1.5-7.6); Eosinophil % 0.1 %; Hematocrit 43.3 % (35-45); Lymphocyte % 16.5 %; Mean Corpuscular Hemoglobin 30.2 pg (27-33); Mean Corpuscular Hgb Conc 34.6 g/dL (31-36); Mean Corpuscular Volume 87.2 fL (80-97); Mean Platelet Volume 7.2 fL (7.5-11.2); Platelet Count 481 10^3/uL (150-450); Red Blood Count 4.97 10^6/uL (3.63-4.92); Red Cell Distribution Width 14.2 % (12-17); White Blood Count 13.3 10^3/uL (3.8-11.8)
[2023-11-05 18:22] LABS: ALT 14 U/L (7-52); Albumin 4.7 g/dL (3.2-5.2); Albumin/Globulin Ratio 1.2 (1-3); Alkaline Phosphatase 77 U/L (35-149); Anion Gap 11 mmol/L (2-16); Blood Urea Nitrogen 25 mg/dL (6-24); C Reactive Protein 7.43 mg/L (<8.01); CO2 Carbon Dioxide 29 mmol/L (22-32); Calcium 10.3 mg/dL (8.6-10.3); Chloride 95 mmol/L (101-111); Creatinine, Serum 1.04 mg/dL (0.51-0.95); Glucose 141 mg/dL (70-100); Lipase 32 U/L (11.0-82.0); Sodium 135 mmol/L (135-145); Total Bilirubin 0.6 mg/dL (0.2-1.0); Total Protein 8.7 g/dL (6.4-8.9); eGFR CKD-EPI 57.1 (>60)
[2023-11-05] MEDS: Iodixanol (CONTRAST) 320 MG/ML 100 ML SDV IV ONE (19:49)
[2023-11-05 21:35] LABS: Magnesium 1.8 mg/dL (1.9-2.7)
[2023-11-05] MEDS ORDERED: Prochlorperazine 5 mg/ml 2 ml VIAL (10 mg) ONE (22:01)
[2023-11-05] MEDS: Prochlorperazine 5 mg/ml 2 ml VIAL (10 mg) IV ONE (22:04)
[2023-11-05] MEDS ORDERED: Rocuronium 50 mg VIAL 10 mg/ml 5 ml VIAL (50 mg) ONE (23:30)
[2023-11-05] MEDS ORDERED: Midazolam 2 mg/2 ml VIAL 1 mg/ml 2 ml VIAL (2 mg) ONE (23:30)
[2023-11-05] MEDS ORDERED: fentaNYL 100 mcg/2 ml 50 MCG/ML VIAL ONE (23:30)
[2023-11-05] MEDS ORDERED: Dexamethasone IV 4 MG/ML VIAL 1 ml VIAL ONE (23:34)
[2023-11-05] MEDS ORDERED: Ondansetron 4 mg VIAL 2 MG/ML 2 ml VIAL ONE (23:34)
[2023-11-05] MEDS ORDERED: Phenylephrine IV 10 MG/ML 1 ml VIAL ONE (23:34)
[2023-11-05] MEDS ORDERED: Propofol 10 MG/ML 20 ML BTL ONE (23:34)
[2023-11-05] MEDS ORDERED: HYDROmorphone 0.5 MG/0.5 ML SYRINGE IV SLOW PU PRN (23:34)
[2023-11-05] MEDS ORDERED: Lidocaine 2% PF 5 ML VIAL ONE (23:34)
[2023-11-05] MEDS: Ondansetron 4 mg VIAL 2 MG/ML 2 ml VIAL IV PRN (23:59)
[2023-11-06] MEDS ORDERED: metroNIDAZOLE IV 500 MG/100ML 500 MG/100 ML BAG ONE (00:36)
[2023-11-06] MEDS ORDERED: Succinylcholine 200 mg VIAL 20 mg/ml 10 ml VIAL (200 mg) ONE (00:50)
[2023-11-06] MEDS ORDERED: Ondansetron 4 mg VIAL 2 MG/ML 2 ml VIAL IV PRN (02:22)
[2023-11-06] MEDS ORDERED: Metoclopramide 5 MG/ML VIAL (10 mg) IV PRN (02:22)
[2023-11-06] MEDS ORDERED: fentaNYL 100 mcg/2 ml 50 MCG/ML VIAL IV PRN (02:22)
[2023-11-06] MEDS ORDERED: Naloxone 0.4 mg VIAL 0.4 mg/ml 1 ml VIAL IV PRN (02:22)
[2023-11-06] MEDS ORDERED: NS 0.45% 1000 ml BAG 1,000 ML IV SCH (03:00)
[2023-11-06] MEDS: Lactated Ringers 1000 ml BAG 1,000 ML IV SCH ×2 (03:00→03:39)
[2023-11-06] MEDS: Gentamicin ADULT 225 MG in NS 0.9% 100 ml BAG 100 ML IVPB ONE (03:00)
[2023-11-06] MEDS: Acetaminophen IV 1 GM/100ML 1,000 MG/100 ML BAG IV ONE (03:00)
[2023-11-06] MEDS: Buffered Lidocaine 1% SYRIN 1 ml INTRADERM ONE (04:44)
[2023-11-06] MEDS: Scopolamine 1 mg/72hr PATCH TRANSDERM ONE (04:44)
[2023-11-06 10:20] VITALS: BP 90/56
== END 2023-11-06 13:20 | disposition home or self-care (01) ==
LOC: ED 14:53 → EDHOLD 14:53 → SSU 11-06 03:33
PROVIDERS: ADMIT Surgery; ATTEND Surgery